=== PATIENT | female | born 1945 | race Caucasian/White ===

== ENCOUNTER 2022-08-31 05:42 | Inpatient (IN) | payer MEDICARE ==
[2022-08-25 14:19] LABS: BASOPHILS # (AUTO) 0.1 X10'3 (0-0.2); BASOPHILS % (AUTO) 0.8 % (0-1); EOSINOPHILS # (AUTO) 0.1 X10'3 (0-0.9); EOSINOPHILS % (AUTO) 1.8 % (0-6); LYMPHOCYTES # (AUTO) 1.6 X10'3 (1.1-4.8); LYMPHOCYTES % (AUTO) 24.3 % (21-51); MEAN CORPUSCULAR HEMOGLOBIN 27.5 PG (27.0-31.0); MEAN CORPUSCULAR HGB CONC 32.5 g/dL (33.0-36.5); MEAN CORPUSCULAR VOLUME 84.6 FL (78-98); MEAN PLATELET VOLUME 7.4 FL (7.4-10.4); MONOCYTES # (AUTO) 0.7 X10'3 (0-0.9); NEUTROPHILS # (AUTO) 4.2 X10'3 (1.8-7.7); NEUTROPHILS % (AUTO) 63.1 % (42-75); PRE OP HEMATOCRIT 43.4 % (35.0-45.0); PRE OP HEMOGLOBIN 14.1 g/dL (12.0-16.0); PRE OP PLATELET COUNT 322 X10'3 (140-440); RED BLOOD COUNT 5.13 X10'6 (4.20-5.60); RED CELL DISTRIBUTION WIDTH 16.5 % (11.5-14.5)
[2022-08-25 14:33] LABS: ALBUMIN/GLOBULIN RATIO 1.2 (1.1-1.5); ALKALINE PHOSPHATASE 84 IU/L (46-116); BLOOD UREA NITROGEN 14 MG/DL (7-18); BUN/CREATININE RATIO 17.5 (6.6-38.0); CALCIUM 8.8 MG/DL (8.5-10.1); CHLORIDE 105 MMOL/L (99-107); PRE OP ALT 46 U/L (30-65); PRE OP ANION GAP 9 (8-16); PRE OP AST 28 U/L (10-37); PRE OP BILIRUB, TOTAL 0.7 MG/DL (0.0-1.0); PRE OP GLUCOSE 86 MG/DL (70-104); PRE OP POTASSIUM 4.1 MMOL/L (3.4-5.1); PRE OP SODIUM 141 MMOL/L (135-145); TOTAL CARBON DIOXIDE 27.5 MMOL/L (24-32); TOTAL PROTEIN 7.4 G/DL (6.4-8.2); eGFR 70 ML/MIN
[~2022-08-31] VITALS: Ht 162.6 cm; Wt 70.0 kg
[2022-08-31] VITALS (21 sets, daily range): BP systolic 94–128; BP diastolic 44–86
[~2022-08-31 05:42] MED LIST: ALPR0.255 PO; CALC-331 PO; CHOL200013 PO; DILT120T3 PO; FERR-39 PO; FURO-150 PO; GLUCOSAMINE 500 MG PO; LEVO150T8 PO; MAGN400C PO; MELA1TAB52 PO; POTA-197 PO; WARF-55 PO; acetaminophen 325mg tablet PO ONE; ceFAZolin inj. 2,000 MG in dextrose 5%-water 100 ML IV ONE; celeCOXIB 100mg capsule PO ONE; famotidine 20mg tablet PO ONE; gabapentin 300mg capsule PO ONE; metoclopramide 5 mg/ml inj IV ONE; oxyCODONE SR 10mg (sust. release) tab -2 tabs (20mg) PO ONE; tranexamic acid inj. 1,000 MG in normal saline IV soln 100ML IV ONE; vancomycin 1,500 MG in NS 300ml IV soln IV ONE
[2022-08-31] MEDS: ringers solution, lacted 1,000 ML IV SCH ×2 (06:40→14:18)
[2022-08-31] MEDS ORDERED: bisacodyl 10mg suppository rectal RC PRN (06:40)
[2022-08-31] MEDS ORDERED: HYDROmorphone 1 mg/ml syringe IV PRN (06:40)
[2022-08-31] MEDS ORDERED: ondansetron/PF 4mg/2ml inj IV PRN ×2 (06:40→09:00)
[2022-08-31] MEDS ORDERED: diphenhydrAMINE 25mg capsule PO PRN ×2 (06:40)
[2022-08-31] MEDS ORDERED: magnesium hydroxide 30ml (MOM) UD suspension PO PRN (06:40)
[2022-08-31] MEDS ORDERED: acetaminophen 325mg tablet PO PRN (06:40)
[2022-08-31] MEDS ORDERED: HYDROmorphone inj. 0.5 MG/0.5 ML DISP.SYRIN IV PRN (06:40)
[2022-08-31] MEDS ORDERED: naloxone 0.4 mg/ml inj IV PRN (06:40)
[2022-08-31] MEDS ORDERED: vancomycin 1,000mg inj ONE ×2 (06:54→08:55)
[2022-08-31] MEDS ORDERED: tranexamic acid 100mg/ml inj. ONE (06:54)
[2022-08-31] MEDS ORDERED: MIDAZolam 1 MG/ML 5ML VIAL ONE (07:41)
[2022-08-31] MEDS ORDERED: fentaNYL/PF 50MCG/1 ML 2ML syringe ONE (07:41)
[2022-08-31] MEDS ORDERED: ROPIVAcaine 0.5% (5mg/ml) 30ml vial IJ ONE ×2 (08:57→08:58)
[2022-08-31] MEDS ORDERED: cloNIDine hcl/PF 100mcg/ml inj IJ ONE (08:58)
[2022-08-31] MEDS ORDERED: ketorolac trometh. 30mg/ml inj. IM ONE (08:59)
[2022-08-31] MEDS ORDERED: meperidine/PF 25mg/ml syringe IV PRN ×3 (09:00)
[2022-08-31] MEDS ORDERED: ringers solution, lacted 1,000 ML IV SCH (09:00)
[2022-08-31] MEDS ORDERED: morphine 4 MG/ML inj SYRINge IV PRN (09:00)
[2022-08-31] MEDS ORDERED: morphine 2 MG/ML inj. syringe IV PRN (09:00)
[2022-08-31] MEDS ORDERED: ROPIVAcaine 0.2% (10 MG/5 ML) BOLUS INJECTION ADDCANAL PRN (09:00)
[2022-08-31] MEDS ORDERED: proCHLORperazine 10 MG/2 ml inj IV PRN (09:00)
[2022-08-31] MEDS ORDERED: epiNEPHrine 1 mg/ml inj IM ONE (09:02)
[2022-08-31] MEDS ORDERED: propofol inj 20 ML IV ONE ×2 (09:08)
[2022-08-31] MEDS ORDERED: ROPIVAcaine 0.5% (5mg/ml) 30ml vial ONE (09:08)
--- NOTE | 2022-08-31 09:43 | NUR ---
Received from OR via , accompanied by Anesthesiologist JOMAR AND OR NURSE and report given by Anesthesiolgist. PT IS DROWSY YET REPSONDS TO VERBAL STIMULI. RT KNEE WITH SANIYA DRESSING, PWDR PACK SLING AND ONQ CATH; CDI. PT IS PACED; MONITOR SHOWS PVC'S AND OCCASSIONAL AFIB. WAS ON PRE SURGICAL EKG. WILL CONTINUE TO MONITOR AND OTHER VSS. Addendum: 08/31/22 at 1013 by Tracy Johnson RN Amended: Links added.
[2022-08-31] MEDS: ROPIVAcaine 0.2%/PF PUMP/bolus 545 ML ADDCANAL SCH (10:31)
--- NOTE | 2022-08-31 11:03 | NUR ---
PRESENT AND 2 RAILS DOWN. RN AWARE THAT PATIENT HAS ARRIVED. TO ACCEPT CARE OF REPORT GIVEN AND ALL QUESTIONS ANSWERED. PATIENT TRANSFERRED TO SURG. LABELED BELONGINGS PRESENT AND DELIVERED TO ROOM. RN PRESENT ALL CRITERIA FOR TRANSFER BACK TO THE FLOOR HAS BEEN ACHIEVED. VSS. PAIN AT A TOLERABLE LEVEL. BED LOW, CALL LIGHT PATIENT. Addendum: 08/31/22 at 1154 by Tracy Johnson RN Amended: Links added.
[2022-08-31] MEDS ORDERED: tranexamic acid inj. 1,000 MG in normal saline 100ml IV soln 90 ML IV ONE ×2 (11:30→12:30)
[2022-08-31] MEDS: HYDROcodone/acetaminophen 10/325mg tab PO PRN (11:43)
[2022-08-31] MEDS: potassium cl 20mEq in 1/2 NS 1,000 ML IV SCH ×2 (14:14→18:35)
[2022-08-31] MEDS: gabapentin 300mg capsule PO SCH ×2 (14:52→20:45)
--- NOTE | 2022-08-31 17:00 | NUR ---
I have reviewed and agree with interventions, assessments, and documentation by BENITA Knight.
--- NOTE | 2022-08-31 18:05 | NUR ---
Patient in room [facility]. I have received report from BENITA Knight and had the opportunity to ask questions and assume patient care.
[2022-08-31] MEDS ORDERED: VANCOMYCIN 1,500MG inj. 1,500 MG in normal saline 500ml IV soln 300 ML IV ONE (20:00)
[2022-08-31] MEDS: diltiazem SR 60mg capsule (twice daily) PO SCH (20:44)
[2022-08-31] MEDS: sennosides 8.6mg tablet PO SCH (20:45)
[2022-08-31] MEDS ORDERED: non-formulary drug (Melatonin 1 TAB) PO SCH (21:00)
[2022-08-31] MEDS ORDERED: warfarin 5mg tablet PO SCH (21:00)
[2022-09-01] MEDS: HYDROcodone/acetaminophen 10/325mg tab PO PRN ×4 (00:12→20:41)
[2022-09-01] MEDS: potassium cl 20mEq in 1/2 NS 1,000 ML IV SCH ×3 (01:40→14:40)
[2022-09-01 02:00] VITALS: BP 117/73
[2022-09-01] MEDS: ALPRAZolam 0.25mg tablet PO PRN ×2 (04:14→23:06)
--- NOTE | 2022-09-01 06:05 | NUR ---
Patient in room [facility]. I have received report from Enedina MOLINA and had the opportunity to ask questions and assume patient care.
--- NOTE | 2022-09-01 06:38 | NUR ---
Problems reprioritized. Patient report given, questions answered & plan of care reviewed with BENITA Kaye.
[2022-09-01] MEDS: levoTHYROXINE 75mcg tablet PO SCH (07:57)
[2022-09-01] MEDS: potassium Cl 20 mEq SR tablet PO SCH (07:58)
[2022-09-01] MEDS: ferrous sulfate 325mg tablet PO SCH (07:58)
[2022-09-01] MEDS: ascorbic acid 500mg tablet PO SCH ×2 (07:59→20:41)
[2022-09-01] MEDS: furosemide 20MG tablet PO SCH (07:59)
[2022-09-01] MEDS: multivitamins, therapeutics tablet PO SCH (07:59)
[2022-09-01] MEDS: gabapentin 300mg capsule PO SCH ×3 (07:59→20:41)
[2022-09-01] MEDS: magnesium oxide 400mg tablet PO SCH (07:59)
[2022-09-01] MEDS: diltiazem SR 60mg capsule (twice daily) PO SCH ×2 (08:01→20:40)
[2022-09-01 08:09] LABS: ANION GAP 7 (8-16); CHLORIDE 103 MMOL/L (99-107); SODIUM 132 MMOL/L (135-145)
[2022-09-01 08:13] LABS: POTASSIUM 4.7 MMOL/L (3.5-5.1)
[2022-09-01 08:33] LABS: BASOPHILS % (AUTO) 0.3 % (0-1); EOSINOPHILS # (AUTO) 0.1 X10'3 (0-0.9); EOSINOPHILS % (AUTO) 0.8 % (0-6); HEMATOCRIT 35.3 % (35.0-45.0); HEMOGLOBIN 11.2 g/dl (12.0-16.0); LYMPHOCYTES # (AUTO) 0.7 X10'3 (1.1-4.8); LYMPHOCYTES % (AUTO) 9.2 % (21-51); MEAN CORPUSCULAR HEMOGLOBIN 27.2 PG (27.0-31.0); MEAN CORPUSCULAR HGB CONC 31.9 g/dL (33.0-36.5); MEAN CORPUSCULAR VOLUME 85.1 FL (78-98); MEAN PLATELET VOLUME 7.8 FL (7.4-10.4); MONOCYTES # (AUTO) 0.7 X10'3 (0-0.9); MONOCYTES % (AUTO) 8.8 % (2-12); NEUTROPHILS # (AUTO) 6.1 X10'3 (1.8-7.7); NEUTROPHILS % (AUTO) 80.9 % (42-75); PLATELET COUNT 234 X10'3 (140-440); RED BLOOD COUNT 4.14 X10'6 (4.20-5.60); WHITE BLOOD COUNT 7.5 X10'3 (4.5-11.0)
[2022-09-01 10:00] VITALS: BP 119/71
--- NOTE | 2022-09-01 11:59 | NUR ---
Joint surgery consult: Pt s/p R knee surgery this admit per EMR. Pt seen by RD for written/verbal high protein diet ed w/ RD contact information provided. Pt reports "no carb" diet at home though admits to eating some CHO; RD educated pt on importance of balance macronutrient intake for wound healing. RD encouraged pt to contact dietitian's office if further nutrition questions/concerns. Addendum: 09/01/22 at [address] Amended: Links added.
[2022-09-01 18:00] VITALS: BP 113/77
--- NOTE | 2022-09-01 18:00 | NUR ---
I have reviewed and agree with interventions, assessments, and documentation by Mikki Phan LVN.
[2022-09-01] MEDS: celeCOXIB 100mg capsule PO SCH (20:42)
[2022-09-01] MEDS: sennosides 8.6mg tablet PO SCH (20:42)
[2022-09-01] MEDS ORDERED: warfarin 7.5mg tablet PO SCH (21:00)
[2022-09-01 22:00] VITALS: BP 105/50
--- NOTE | 2022-09-01 22:58 | NUR ---
assessment complete. pt has 20guage IV flushed in left arm SL. pt has right knee surgery CDI raquel dressing intact. On Q pump intact. pt using IS and doing ankle pumps. noted pt obese with edema noted right leg over left. pt has irregular HR - pt states she has afib. no pain in chest or calves. pain to knee incision only. gatched FOB. lungs clear and positive BS. pt is a/o x4.
[2022-09-02] MEDS: HYDROcodone/acetaminophen 10/325mg tab PO PRN ×2 (03:00→12:17)
--- NOTE | 2022-09-02 05:07 | NUR ---
Gave report to Juliette for one hour and I typed up a written report for the oncoming nurse. Questions were answered.
[2022-09-02 06:40] LABS: BASOPHILS % (AUTO) 0.2 % (0-1); EOSINOPHILS # (AUTO) 0.1 X10'3 (0-0.9); EOSINOPHILS % (AUTO) 1.3 % (0-6); HEMATOCRIT 32.5 % (35.0-45.0); HEMOGLOBIN 10.6 g/dl (12.0-16.0); LYMPHOCYTES # (AUTO) 0.7 X10'3 (1.1-4.8); LYMPHOCYTES % (AUTO) 9.1 % (21-51); MEAN CORPUSCULAR HEMOGLOBIN 27.8 PG (27.0-31.0); MEAN CORPUSCULAR HGB CONC 32.6 g/dL (33.0-36.5); MEAN CORPUSCULAR VOLUME 85.4 FL (78-98); MEAN PLATELET VOLUME 7.6 FL (7.4-10.4); MONOCYTES # (AUTO) 0.9 X10'3 (0-0.9); MONOCYTES % (AUTO) 11.8 % (2-12); NEUTROPHILS # (AUTO) 6.1 X10'3 (1.8-7.7); NEUTROPHILS % (AUTO) 77.6 % (42-75); PLATELET COUNT 227 X10'3 (140-440); RED CELL DISTRIBUTION WIDTH 16.1 % (11.5-14.5); WHITE BLOOD COUNT 7.9 X10'3 (4.5-11.0)
--- NOTE | 2022-09-02 06:45 | NUR ---
Patient in room [facility]. I have received report from Juliette MOLINA and had the opportunity to ask questions and assume patient care.
[2022-09-02 07:00] VITALS: BP 124/67
[2022-09-02] MEDS: levoTHYROXINE 75mcg tablet PO SCH (07:33)
[2022-09-02] MEDS: diltiazem SR 60mg capsule (twice daily) PO SCH (07:33)
[2022-09-02] MEDS: celeCOXIB 100mg capsule PO SCH (07:34)
[2022-09-02] MEDS: ferrous sulfate 325mg tablet PO SCH (07:34)
[2022-09-02] MEDS: ascorbic acid 500mg tablet PO SCH (07:35)
[2022-09-02] MEDS: gabapentin 300mg capsule PO SCH ×2 (07:35→12:17)
[2022-09-02] MEDS: magnesium oxide 400mg tablet PO SCH (07:35)
[2022-09-02] MEDS: multivitamins, therapeutics tablet PO SCH (07:35)
[2022-09-02] MEDS: potassium Cl 20 mEq SR tablet PO SCH (07:37)
[2022-09-02] MEDS: furosemide 20MG tablet PO SCH (07:37)
[2022-09-02 08:30] VITALS: BP 108/58
--- NOTE | 2022-09-02 08:30 | NUR ---
Patient refused scheduled lasix and potassium this morning, reports that she has been urinating too much and her edema is "almost gone." Education provided re medication and CHF, patient verbalizes understanding. Patient stated, "I will take it at home if I need it."
[2022-09-02 10:00] VITALS: BP 113/56
[2022-09-02] MEDS: potassium cl 20mEq in 1/2 NS 1,000 ML IV SCH (11:35)
[2022-09-02] MEDS: ROPIVAcaine 0.2%/PF PUMP/bolus 545 ML ADDCANAL SCH (12:07)
--- NOTE | 2022-09-02 13:05 | NUR ---
CANE FLUME WATCHMAN documentation: I have reviewed and agree with all interventions, assessments performed and documented by Lashay Potter LVN.
--- NOTE | 2022-09-02 13:30 | NUR ---
Patient is stable and appropriate for discharge. PIV removed, cannula intact, patient tolerated well. Patient changed from gown into personal clothes with minimal assist. Discharge paperwork reviewed and form was signed by patient, all questions anticipated and addressed. Education provided for limitations, aftercare, ONQ pump, and SANIYA dressing, patient states understanding. Patient assisted out of facility via w/c assisted by aux staff with patient's daughter to transport home.
== END 2022-09-02 13:27 | disposition home or self-care (01) | DRG 470 ==
LOC: PAS 05:42 → SUR 3N 06:43 → PAS 07:00 → SUR 3N 10:00
PROVIDERS: ADMIT Orthopaedic Surgery; ATTEND Orthopaedic Surgery
PROC: 0SRC0J9 Replacement of Right Knee Joint with Synthetic Substitute, Cemented, Open Approach (ICD-10-PCS; principal; 2022-08-31 07:33)
DX: M17.11 Unilateral primary osteoarthritis, right knee (principal); Z79.899 Other long term (current) drug therapy
CPT/HCPCS: 36415; 73560; 80051; 80053; 82948; 85025; 85610; 86885; 86900; 86901; 87081; 97110; 97116; 97161; 97530; A4215; A4615; A7000; C1713; C1776; G0378; J0171; J0690; J0735; J1885; J2250; J2405; J2704; J2765; J2795; J3010; J3370; J3480; J3490; J7040; J7060; J7120

== ENCOUNTER 2023-05-19 03:21 | Emergency (ER) | payer MEDICARE ==
[~2023-05-19] VITALS: Ht 162.6 cm; Wt 120.0 kg
[~2023-05-19 03:21] MED LIST changes: -acetaminophen 325mg tablet PO ONE; -ceFAZolin inj. 2,000 MG in dextrose 5%-water 100 ML IV ONE; -celeCOXIB 100mg capsule PO ONE; -famotidine 20mg tablet PO ONE; -gabapentin 300mg capsule PO ONE; -metoclopramide 5 mg/ml inj IV ONE; -oxyCODONE SR 10mg (sust. release) tab -2 tabs (20mg) PO ONE; -tranexamic acid inj. 1,000 MG in normal saline IV soln 100ML IV ONE; -vancomycin 1,500 MG in NS 300ml IV soln IV ONE
[2023-05-19] MEDS ORDERED: LIDOcaine 5% patch TP STA (03:27)
[2023-05-19 03:28] VITALS: TEMP 98.7
[2023-05-19] MEDS ORDERED: acetaminophen 325mg tablet PO ONE (03:30)
[2023-05-19] MEDS ORDERED: oxyCODONE IR 5mg (immed. release) tablet PO ONE (03:30)
[2023-05-19] MEDS ORDERED: HYDR-3965 PO (04:03)
[2023-05-19] MEDS ORDERED: LIDO1ADH44 TOP (04:04)
--- NOTE | 2023-05-19 05:03 | NUR ---
PT CALLING SON (LIVES AT HER HOME) TO PICK HER UP.
[2023-05-19 05:29] VITALS: BP 137/87; PULSE 68; RESP 14; O2SAT 98
== END 2023-05-19 05:31 | disposition home or self-care (01) ==
LOC: ER 03:22
DX: M54.9 Dorsalgia, unspecified (principal); I11.0 Hypertensive heart disease with heart failure; Z79.899 Other long term (current) drug therapy
CPT/HCPCS: 71100; 99284

== ENCOUNTER 2024-01-05 22:45 | Emergency (ER) | payer MEDICARE ==
[~2024-01-05] VITALS: Ht 162.6 cm; Wt 120.5 kg
[~2024-01-05 22:45] MED LIST changes: +LIDO1ADH44 TOP
[2024-01-05 23:31] LABS: BASOPHILS % (AUTO) 0.6 % (0-1); EOSINOPHILS # (AUTO) 0.1 X10'3 (0-0.9); EOSINOPHILS % (AUTO) 1.8 % (0-6); HEMATOCRIT 38.2 % (35.0-45.0); HEMOGLOBIN 12.4 g/dl (12.0-16.0); LYMPHOCYTES # (AUTO) 1.6 X10'3 (1.1-4.8); LYMPHOCYTES % (AUTO) 20.3 % (21-51); MEAN CORPUSCULAR HGB CONC 32.5 g/dL (33.0-36.5); MEAN CORPUSCULAR VOLUME 89.1 FL (78-98); MEAN PLATELET VOLUME 7.6 FL (7.4-10.4); MONOCYTES # (AUTO) 0.9 X10'3 (0-0.9); MONOCYTES % (AUTO) 11.2 % (2-12); NEUTROPHILS # (AUTO) 5.2 X10'3 (1.8-7.7); NEUTROPHILS % (AUTO) 66.1 % (42-75); PLATELET COUNT 310 X10'3 (140-440); RED BLOOD COUNT 4.29 X10'6 (4.20-5.60); RED CELL DISTRIBUTION WIDTH 13.9 % (11.5-14.5); WHITE BLOOD COUNT 7.8 X10'3 (4.5-11.0)
[2024-01-05 23:36] LABS: ALANINE AMINOTRANSFERASE 34 U/L (12-78); ALBUMIN 3.5 G/DL (3.4-5.0); ALKALINE PHOSPHATASE 90 IU/L (46-116); ANION GAP 10 (8-16); ASPARTATE AMINO TRANSFERASE 22 U/L (10-37); BILIRUBIN,TOTAL 0.7 MG/DL (0.1-1.0); BLOOD UREA NITROGEN 19 MG/DL (7-18); BUN/CREATININE RATIO 19.8 (10.0-20.0); CALCIUM 8.8 MG/DL (8.5-10.1); CHLORIDE 104 MMOL/L (99-107); CREATININE 0.96 MG/DL (0.40-0.90); GLUCOSE 123 MG/DL (70-104); POTASSIUM 3.9 MMOL/L (3.5-5.1); SODIUM 139 MMOL/L (135-145); TOTAL CARBON DIOXIDE 24.8 MMOL/L (24-32); TOTAL PROTEIN 6.9 G/DL (6.4-8.2); eCRCL 42 ML/MIN; eGFR 56 ML/MIN
[2024-01-05 23:48] LABS: PRO BRAIN NATRIURETIC PEPTIDE 780 PG/ML (0-450)
[2024-01-06 01:47] LABS: BILIRUBIN,URINE NEGATIVE (Neg); CLARITY,URINE SLIGHTLY CLOUDY (Clear); COLOR,URINE YELLOW (Yellow); GLUCOSE, URINE NEGATIVE (Neg); KETONES,URINE NEGATIVE (Neg); LEUKOCYTE ESTERASE ,URINE SMALL (Neg); NITRITES, URINE POSITIVE (Neg); OCCULT BLOOD,URINE NEGATIVE (Neg); PH,URINE 5.5 (4.8-8.0); PROTEIN,URINE NEGATIVE (Neg); UROBILINOGEN,URINE 0.2 E.U/dL (0.2-1.0)
[2024-01-06 01:54] LABS: UA COLLECTION TYPE CLN CATCH MIDSTREAM
[2024-01-06 02:00] LABS: URINE AMPHETAMINE SCREEN NEGATIVE (Neg); URINE BARBITUATE SCREEN NEGATIVE (Neg); URINE BENZODIAZEPINES SCREEN NEGATIVE (Neg); URINE CANNABINOID SCREEN NEGATIVE (Neg); URINE COCAINE SCREEN NEGATIVE (Neg); URINE METHADONE SCREEN NEGATIVE (Neg); URINE OPIATE SCREEN NEGATIVE (Neg); URINE PHENCYCLIDINE SCREEN NEGATIVE (Neg)
[2024-01-06 02:06] LABS: BACTERIA,URINE 4+ /HPF (Neg); MUCUS STRANDS FEW /LPF (Neg); RBC,URINE 0-2 /HPF (0-2); RENAL CELLS, URINE FEW /HPF; SQUAMOUS EPITHELIAL CELL,UR FEW /LPF (FEW); TRANSITIONAL EPI CELLS,URINE FEW /HPF
[2024-01-06] MEDS: cephalexin 250mg capsule PO ONE (02:18)
[2024-01-06] MEDS ORDERED: CEPH-585 PO (02:31)
[2024-01-06 02:57] VITALS: BP 120/61; PULSE 85; RESP 18; TEMP 98.1; O2SAT 99
== END 2024-01-06 02:58 | disposition home or self-care (01) ==
LOC: ER 22:46
DX: N39.0 Urinary tract infection, site not specified (principal); R00.2 Palpitations; R42 Dizziness and giddiness; I11.0 Hypertensive heart disease with heart failure; I50.9 Heart failure, unspecified; Z79.899 Other long term (current) drug therapy
CPT/HCPCS: 36415; 71045; 80053; 80305; 81001; 83880; 84484; 85025; 87077; 87088; 87186; 93005; 99285